=== PATIENT | female | born 1970 | race Caucasian/White ===

== ENCOUNTER → 2020-12-14 11:31 | Outpatient (BNVA) | payer OTHER, SELFPAY | PROVIDERS: PCP Internal Medicine; Visit Provider Physician Assistant | DX: M54.50 Low back pain, unspecified (principal); S73.102A Unspecified sprain of left hip, initial encounter; W01.0XXA Fall on same level from slipping, tripping and stumbling without subsequent striking against object, initial encounter | CPT/HCPCS: 99203 ==

== ENCOUNTER → 2020-12-19 14:39 | Outpatient (BNVA) | payer OTHER, SELFPAY | PROVIDERS: PCP Internal Medicine; Visit Provider Physician Assistant Medical | DX: M54.50 Low back pain, unspecified (principal); M25.552 Pain in left hip; Z91.81 History of falling | CPT/HCPCS: 99213 ==

== ENCOUNTER → 2020-12-26 08:59 | Outpatient (BNVA) | payer OTHER, SELFPAY | PROVIDERS: PCP Internal Medicine; Visit Provider Internal Medicine | DX: S39.012A Strain of muscle, fascia and tendon of lower back, initial encounter (principal); W18.30XA Fall on same level, unspecified, initial encounter | CPT/HCPCS: 99213 ==

== ENCOUNTER → 2021-01-02 15:13 | Outpatient (BNVA) | payer OTHER, SELFPAY | PROVIDERS: PCP Internal Medicine; Visit Provider Physician Assistant Medical | DX: S39.012A Strain of muscle, fascia and tendon of lower back, initial encounter (principal); W18.30XA Fall on same level, unspecified, initial encounter | CPT/HCPCS: 99213 ==

== ENCOUNTER → 2021-01-15 15:36 | Outpatient (BNVA) | payer OTHER, SELFPAY | PROVIDERS: PCP Nurse Practitioner Family; Visit Provider Physician Assistant Medical | DX: S39.012D Strain of muscle, fascia and tendon of lower back, subsequent encounter (principal); X58.XXXD Exposure to other specified factors, subsequent encounter | CPT/HCPCS: 99213 ==

== ENCOUNTER 2021-05-26 14:06 | Outpatient (REF) | payer OTHER, SELFPAY ==
--- NOTE | ~2021-05-26 | XR_ITS ---
EXAMINATION: Left hand CLINICAL INFORMATION: Pain in left hand fingers COMPARISON: None TECHNIQUE: 3 views of left hand FINDINGS: There is no evidence of fracture or dislocations. Bones are well mineralized XR/XR hand wrist LT IMPRESSION: No abnormal findings
== END 2021-05-26 14:07 | disposition home or self-care (01) ==
LOC: HO.HMGCX 14:06
PROVIDERS: PCP Nurse Practitioner Family; Visit Provider Physician Assistant Medical
DX: M79.645 Pain in left finger(s) (principal)
CPT/HCPCS: 73110; 73130

== ENCOUNTER 2024-01-23 14:36 | Outpatient (REF) | payer OTHER, SELFPAY ==
--- NOTE | ~2024-01-23 | XR_ITS ---
EXAMINATION: XR FOOT, LEFT CLINICAL INFORMATION: M79.672 - Pain in left foot COMPARISON: None available. TECHNIQUE: AP, lateral, and oblique views of the left foot. FINDINGS: Total ring noted overlying the middle phalanx of the 2nd toe. Small plantar calcaneal spur. Mild hallux valgus. Remaining bone and joints soft tissues normal. XR/XR foot LT min 3V IMPRESSION: Small plantar calcaneal spur. Mild hallux valgus. Electronically signed by: Maximilian Roberts MD 01/23/2024 04:26 PM EST [facility]
== END 2024-01-23 14:37 | disposition home or self-care (01) ==
LOC: HO.HMGCX 14:36
PROVIDERS: PCP Nurse Practitioner Family; Visit Provider Physician Assistant
DX: M79.672 Pain in left foot (principal); S93.602A Unspecified sprain of left foot, initial encounter
CPT/HCPCS: 73630; 96372; 99202; J1885

== ENCOUNTER 2024-01-23 14:36 | Outpatient (AMB) | payer OTHER, SELFPAY ==
--- NOTE | 2024-01-23 14:39 | AM.OFFWIN_ITS ---
Intake Vital Signs 01/23/24 14:46 Weight 167 lb BP 126/80 Blood Pressure Location Lt brachial Position Sitting Pulse 64 Pulse Source Pulse Oximeter Pulse Oximetry (%) 98 Oxygen Delivery Method Room Air Intake Visit Reasons: EP-lt foot extreme pain-work injury Intake Note: Patient here because she tripped over a student and is now having pain at the top and bottom of her left foot. Patient Tobacco Use Status: Never used Tobacco Allergies No Known Allergies Allergy (Verified 01/23/24 14:47) Do you need a note to return to daycare/school/sports/work: No HPI HPI Comments History of Present Illness Details History of Present Illness The patient is a 53-year-old female presenting with a left foot injury. 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 The patient reports she initially could bear a minimal amount of weight but now experiences significant pain when attempting to do so. She has been hopping with assistance to move around. Since the injury, the patient has described severe pain localized to the top the left foot near the toes with associated numbness in the third & 4th toes. There is no pain reported on the front or the back of the ankle, and she can move her ankle without pain. The patient has not taken any medication for pain management at the time of presentation. Physical Exam General: Cooperative, healthy appearing, comfortable, no acute distress and well developed Orientation: Patient oriented x3 Limitations: Unable to bear weight on left foot, in a wheelchair Head: Normal to inspection Ears: Hearing grossly normal bilaterally Nose: Normal external nose present Face and sinus: Normal facial exam Eyes: Appearance normal, both eyes and all related structures Neck: Normal visual inspection and Yes full ROM Respiratory: Normal respiratory effort and able to speak in complete sentences. Skin: No rashes or lesions noted Neuro: Patient oriented x3 Extremities: Left foot TTP distal dorsal aspect, full ROM in great toe and 2nd toe, pain with attempted ROM in 3&4 toes. No TTP posterior medial or lateral malleolus, full ROM ankle. normal capillary refill on all toes. unable to bear weight on left foot PFSH Social History Patient Tobacco Use Status: Never used Tobacco Review of Systems Const All systems reviewed & are unremarkable except as noted in HPI and below Physical Exam Vital Signs: Last Vital Signs Pulse 64 01/23/24 14:46 BP 126/80 01/23/24 14:46 Pulse Ox 98 01/23/24 14:46 Oxygen Delivery Method Room Air 01/23/24 14:46 Office Meds ketorolac 30 mg/mL (1 mL) injection solution Performing Provider: Krupa Amor PA-C Performing Location: [facility] [place] [facility] Administered by: Sonya Brooks RN on 01/23/24 15:28 Dose Route Admin Location Dispensed Lot Number Expiration Date [facility] [employer] 30 mg IM Left gluteal 1 mL [id number] 08/10/24 99758-341-71 [employer] Assessment & Plan Assessment & Plan (1) Foot pain, left: Code(s): M79.672 - Pain in left foot Plan: as below (2) Sprain of left foot: Code(s): S93.602A - Unspecified sprain of left foot, initial encounter Qualifiers: Encounter type: initial encounter Qualified Code(s): S93.602A - Unspecified sprain of left foot, initial encounter Plan: Plan - Administered a Toradol ketorolac injection to address pain and inflammation in the left foot. - Obtain a stat x-ray of the left foot to assess for fractures or any other abnormalities. My read of foot xray is no fracture or dislocation. - Advise the patient to refrain from using ibuprofen or Aleve for six hours post-Toradol injection; Tylenol may be taken for additional pain relief if needed. - Arrange for the x-ray results to be reviewed by another provider, given the potential delay in receiving results and my absence the following day. - Use ice, Aleve and rest for 1-2 weeks. Fitted pt for short boot; Pt instructed to wean off the boot over the next 5-7 days. If no improvement in your symptoms, follow up with your PCP. Patient was informed and verbally consented to the use of an ambient scribe for clinic note documentation during this visit. Orders: Orders XR foot LT min 3V Today M79.672 - Pain in left foot AMB Ketorolac Injection Today M79.672 - Pain in left foot Coding Level of Care Code New Pt Level 4 (13203) Diagnoses Foot pain, left M79.672 Sprain of left foot, initial encounter S93.602A Encounter type: initial encounter
[2024-01-23 14:46] VITALS: BP 126/80; PULSE 64; O2SAT 98
== END 2024-01-23 16:22 | disposition home or self-care (01) ==
PROVIDERS: PCP Nurse Practitioner Family; Visit Provider Physician Assistant
DX: M79.672 Pain in left foot (principal); S93.602A Unspecified sprain of left foot, initial encounter

== ENCOUNTER 2024-10-15 07:21 | Outpatient (AMB) | payer OTHER, SELFPAY ==
[2024-10-15 07:28] VITALS: BP 110/70; PULSE 70; RESP 16; TEMP 36.8; O2SAT 97; BMI 31.3
--- NOTE | 2024-10-15 07:28 | AM.OFFWIN_ITS ---
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 - The pain began suddenly without any kn own injury and has persisted since the previous day, with pain starting after sitting for 2.5 hours. Denies low back pain - aching pain, not constant sharp or shooting though at times it can be, randomly. - Described as excruciating, the pain af fects her ability to sit, stand, and climb stairs, and is located on the side of the hip, radiating down the leg without lower back involvement. - Gabapentin was attempted for relief bu t was ineffective. - Oxid-yrd-lblbbcd NSAIDs have not been tried Physical Exam General: Cooperative, healthy appearing, comfortable, no acute distress and well developed Orientation: Patient oriented x3 Limitations: Pain in hip and leg, difficulty with stairs, standing, sitting, and walking due to sharp pain Head: Normal to inspection Ears: Hearing grossly normal bilaterally Nose: Normal External nose present Face and sinus: Normal facial exam Eyes: Appearance normal, both eyes and all related structures Neck: Normal visual inspection and Yes full ROM Respiratory: Normal respiratory effort and able to speak in complete sentences. Skin: No rashes or lesions noted Neuro: Patient oriented x3, limping gait Extremities: TTP right lateral thigh, negative straight leg right side. limited ROM right hip due to pain [facility] Social History Patient Tobacco Use Status: Never used Tobacco Review of Systems Const All systems reviewed & are unremarkable except as noted in HPI and below Physical Exam Vital Signs: Last Vital Signs Temp 98.2 F 10/15/24 07:28 Pulse 70 10/15/24 07:28 Resp 16 10/15/24 07:28 BP 110/70 10/15/24 07:28 Pulse Ox 97 10/15/24 07:28 Oxygen Delivery Method Room Air 10/15/24 07:28 BMI result Body Mass Index 31.3 Assessment & Plan Assessment & Plan (1) Acute right hip pain: Code(s): M25.551 - Pain in right hip Plan: Plan Patient was informed and verbally consented to the use of an ambient scribe for clinic note documentation during this visit. 1. Hip Pain - Muscle spasm considered due to prolonged sitting; Aleve recommended initially, with meloxicam as a stronger option if needed. - Cyclobenzaprine prescribed as a muscle relaxant, with dosing options of 5 mg or 10 mg. - Advised to avoid other NSAIDs with meloxicam, but Tylenol is allowed. - Recommended rest and no heavy lifting over the weekend. - If no improvement, follow up wiht PCP Medications: New meloxicam do not take other NSAIDS while taking this medication 15 mg PO DAILY PRN 15 tabs 0RF pain, moderate cyclobenzaprine 5 mg PO Q8H PRN 20 tabs 0RF Muscle Spasm Coding Level of Care Code New Pt Level 3 (96290) Diagnoses Acute right hip pain M25.551
== END 2024-10-15 08:32 | disposition home or self-care (01) ==
PROVIDERS: PCP Nurse Practitioner Family; Visit Provider Physician Assistant
DX: M25.551 Pain in right hip (principal)